=== PATIENT | female | born 1935 | race Caucasian/White ===

== ENCOUNTER 2016-06-19 08:29 | Emergency (ER) | payer OTHER ==
[~2016-06-19] VITALS: Ht 160 cm; Wt 90.7 kg
[2016-06-19 09:36] LABS: Basophils # (auto) 0.1 uL; Basophils % (auto) 0.8 % (0.0-2.0); Eosinophils # (auto) 0.1 uL; Hematocrit 41.4 % (36.0-46.0); Hemoglobin 13.6 g/dL (12.2-16.2); Lymphocytes % (auto) 29.4 % (10.0-50.0); Mean Corpuscular Hemoglobin 30.6 pg (28.0-32.0); Mean Corpuscular Volume 92.9 fL (80.0-100.0); Mean Platelet Volume 9.7 fL (7.4-10.4); Monocytes # (auto) 0.4 uL; Monocytes % (auto) 5.9 % (0.0-12.0); Neutrophils # (auto) 4.2 uL; Neutrophils % (auto) 61.9 % (37.0-80.0); Platelet Count (auto) 373 10^3/uL (140-450); White Blood Cell 6.8 10^3/uL (4.4-10.8)
[2016-06-19 09:53] VITALS: BP 137/74
[2016-06-19 10:05] LABS: Albumin 3.7 g/dL (3.4-5.0); Alkaline Phosphatase 70 U/L (45-117); Anion Gap 15 (5-15); Aspartate Aminotransferase 18 U/L (15-37); BUN/Creatinine Ratio 12.9; Bilirubin, Total 0.4 mg/dL (0.2-1.0); Blood Urea Nitrogen 15 mg/dL (7-18); Calcium 9.3 mg/dL (8.5-10.1); Carbon Dioxide 19 mmol/L (21-32); Chloride 110 mmol/L (98-107); GFR African American 58 mL/min; GFR Non-African American 48 mL/min; Glucose 113 mg/dL (74-106); Potassium 4.2 mmol/L (3.5-5.1); Sodium 144 mmol/L (136-145); Total Protein 7.9 g/dL (6.4-8.2)
== END 2016-06-19 11:46 | disposition home or self-care (01) ==
LOC: ER 08:29 → EDBD 08:29 → ER 11:46
DX: G45.9 Transient cerebral ischemic attack, unspecified (principal); F41.9 Anxiety disorder, unspecified; E11.9 Type 2 diabetes mellitus without complications; I10 Essential (primary) hypertension
CPT/HCPCS: 36415; 70450; 80053; 83735; 84484; 85025; 93005; 94761

== ENCOUNTER 2017-01-08 11:47 | Inpatient (IN) | payer OTHER ==
[~2017-01-08] VITALS: Ht 170.2 cm; Wt 81.4 kg
[2017-01-08] MEDS ORDERED: SODIUM CHLORIDE 0.9% 1,000 ML IV ONE (12:36)
[2017-01-08] MEDS ORDERED: LEVOFLOXACIN 500 MG/100 ML PREMIX BAG IV ONE (12:45)
[2017-01-08] MEDS ORDERED: DILTIAZEM HCL 25 MG/5 ML VIAL IV ONE (12:45)
[2017-01-08 13:08] LABS: Basophils # (auto) 0.1 uL; Basophils % (auto) 0.5 % (0.0-2.0); Eosinophils # (auto) 0 uL; Eosinophils % (auto) 0.1 % (0.0-7.0); Hematocrit 36.4 % (36.0-46.0); Hemoglobin 12.1 g/dL (12.2-16.2); Lymphocytes # (auto) 1.9 uL; Lymphocytes % (auto) 15.7 % (10.0-50.0); Mean Corpuscular Hemoglobin 31.1 pg (28.0-32.0); Mean Corpuscular Hgb Conc. 33.4 g/dL (32.0-36.0); Mean Corpuscular Volume 93.2 fL (80.0-100.0); Mean Platelet Volume 9.4 fL (6.9-10.8); Monocytes # (auto) 0.9 uL; Monocytes % (auto) 7.6 % (0.0-12.0); Neutrophils # (auto) 9.3 uL; Neutrophils % (auto) 76.1 % (37.0-80.0); Platelet Count (auto) 262 10^3/uL (140-450); Red Cell Distribution Width 14.7 % (11.8-14.3); White Blood Cell 12.2 10^3/uL (4.4-10.8)
[2017-01-08 13:20] LABS: INR 2.72 (0.9-1.15); Partial Thromboplastin Time 46.4 sec (22.64-33.71); Prothrombin Time 29.9 sec (9.37-12.3)
[2017-01-08] MEDS ORDERED: NITROGLYCERIN 0.4 MG SL TAB SL PRN (14:15)
[2017-01-08] MEDS ORDERED: HYDROcodone-ACET 5/325MG TAB PO PRN (14:15)
[2017-01-08] MEDS ORDERED: TEMAZEPAM 15 MG CAP PO PRN (14:15)
[2017-01-08] MEDS ORDERED: PIPERACILLIN-TAZOB 3.375GM 100 ML IV ONE (14:15)
[2017-01-08] MEDS ORDERED: MORPHINE SULF INJ 2 MG/ML SYRINGE 1ML IV PRN ×2 (14:15)
[2017-01-08] MEDS ORDERED: ACETAMINOPHEN 325 MG TAB PO PRN (14:15)
[2017-01-08] MEDS ORDERED: DEXTROSE (50%) 50ML SYRG IV PRN (14:15)
[2017-01-08] MEDS ORDERED: DOCUSATE SOD 100 MG CAP PO PRN (14:15)
[2017-01-08] MEDS ORDERED: VANCOMYCIN PER PHARMACY 0 MG IV SCH (14:15)
[2017-01-08] MEDS ORDERED: ONDANSETRON HCL 4 MG/2 ML VIAL IV PRN (14:15)
[2017-01-08 14:28] LABS: Albumin 3.3 g/dL (3.4-5.0); Bilirubin, Total 0.9 mg/dL (0.2-1.0); Calcium 8.5 mg/dL (8.5-10.1); Potassium 3.8 mmol/L (3.5-5.1); Total Protein 7.9 g/dL (6.4-8.2)
[2017-01-08 14:29] LABS: BUN/Creatinine Ratio 12.6
[2017-01-08 15:24] LABS: Urine Bilirubin Negative (Negative); Urine Blood Negative /uL (Negative); Urine Color Yellow (Yellow); Urine Glucose Normal (Normal); Urine Hyaline Cast FEW /lpf (0 - 2); Urine Ketone Negative (Negative); Urine Mucus FEW (None Seen); Urine Nitrite Negative (Negative); Urine RBC <1 /hpf (0 - 4); Urine Squamous Epithelial Cell FEW /hpf (<5); Urine Urobilinogen Normal (Negative); Urine pH 5.5 (5.0-8.0)
[2017-01-08] MEDS: DILTIAZEM 125mg/125ml BAG KIT 125 ML IV SCH (15:29)
[2017-01-08] MEDS: VANCOMYCIN 1GM/250ML D5W 250 ML IV SCH (16:10)
[2017-01-08] MEDS ORDERED: CLOPIDOGREL BISULFATE 75 MG TAB PO ONE (16:30)
[2017-01-08] MEDS: ACCU-CHEK COMFORT CURVE STRIP VI SCH ×2 (16:45→21:46)
[2017-01-08 16:53] LABS: Temperature: 21.9 C (20.0-25.0)
[2017-01-08] MEDS: InsuLIN REG 1unit/0.01ml Soln (100units/ml) SC SCH ×2 (16:53→21:45)
[2017-01-08] MEDS ORDERED: ASPirin 81 mg TAB PO ONE (17:00)
[2017-01-08] MEDS: Boost Glucose Control 8 Ounces PO SCH (18:02)
[2017-01-08] MEDS ORDERED: WARF3TAB22 PO (19:30)
[2017-01-08] MEDS ORDERED: WARF2TAB49 PO (19:30)
[2017-01-08] MEDS ORDERED: METO25TA5 PO (19:30)
[2017-01-08] MEDS ORDERED: METF-370 PO (19:30)
[2017-01-08] MEDS: PIPERACILLIN-TAZOB 3.375GM 100 ML IV SCH (20:17)
[2017-01-08] MEDS: SODIUM CHLOR 0.9% PF (SALINE LOCK) 10ML VIAL IV SCH (21:44)
[2017-01-08] MEDS: METOPROLOL TARTRATE 25 MG TAB PO SCH (21:45)
[2017-01-08] MEDS: FAMOTIDINE 20 MG TAB PO SCH (21:45)
[2017-01-08] MEDS: ASCORBIC ACID 500 MG TAB PO SCH (21:45)
[2017-01-09] MEDS: PIPERACILLIN-TAZOB 3.375GM 100 ML IV SCH ×3 (01:58→14:52)
[2017-01-09] MEDS: SODIUM CHLOR 0.9% PF (SALINE LOCK) 10ML VIAL IV SCH ×2 (06:07→14:15)
[2017-01-09] MEDS: InsuLIN REG 1unit/0.01ml Soln (100units/ml) SC SCH ×3 (06:39→17:57)
[2017-01-09] MEDS: ACCU-CHEK COMFORT CURVE STRIP VI SCH ×3 (06:39→17:58)
[2017-01-09 08:05] LABS: Basophils # (auto) 0.1 uL; Basophils % (auto) 0.8 % (0.0-2.0); Eosinophils # (auto) 0.1 uL; Eosinophils % (auto) 1.9 % (0.0-7.0); Hematocrit 34.2 % (36.0-46.0); Hemoglobin 11.3 g/dL (12.2-16.2); Lymphocytes % (auto) 26.3 % (10.0-50.0); Mean Corpuscular Hemoglobin 31.2 pg (28.0-32.0); Mean Corpuscular Hgb Conc. 33.1 g/dL (32.0-36.0); Mean Corpuscular Volume 94.2 fL (80.0-100.0); Mean Platelet Volume 9.9 fL (6.9-10.8); Monocytes # (auto) 0.9 uL; Monocytes % (auto) 11.4 % (0.0-12.0); Neutrophils # (auto) 4.5 uL; Neutrophils % (auto) 59.6 % (37.0-80.0); Platelet Count (auto) 211 10^3/uL (140-450); Red Cell Distribution Width 15.2 % (11.8-14.3); White Blood Cell 7.5 10^3/uL (4.4-10.8)
[2017-01-09 08:17] LABS: INR 3.16 (0.9-1.15); Partial Thromboplastin Time 47.1 sec (22.64-33.71); Prothrombin Time 34.9 sec (9.37-12.3)
[2017-01-09 08:33] LABS: Albumin 2.7 g/dL (3.4-5.0); BUN/Creatinine Ratio 15.5; Bilirubin, Total 0.8 mg/dL (0.2-1.0); Potassium 3.7 mmol/L (3.5-5.1); Total Protein 6.7 g/dL (6.4-8.2)
[2017-01-09] MEDS: Boost Glucose Control 8 Ounces PO SCH ×3 (08:47→17:58)
[2017-01-09] MEDS ORDERED: MULTIPLE VITAMIN TAB PO SCH (10:00)
[2017-01-09] MEDS ORDERED: ASPirin 81 mg TAB PO SCH (10:00)
[2017-01-09] MEDS ORDERED: ZINC SULFATE 220 MG CAP PO SCH (10:00)
[2017-01-09] MEDS: FAMOTIDINE 20 MG TAB PO SCH (10:24)
[2017-01-09] MEDS: METOPROLOL TARTRATE 25 MG TAB PO SCH (10:24)
[2017-01-09] MEDS: ASCORBIC ACID 500 MG TAB PO SCH (10:24)
[2017-01-09] MEDS: VANCOMYCIN 1GM/250ML D5W 250 ML IV SCH (10:35)
[2017-01-09 13:00] VITALS: BP 128/66
[2017-01-09 13:20] VITALS: BP 128/66
[2017-01-09] MEDS: DILTIAZEM 125mg/125ml BAG KIT 125 ML IV SCH (14:15)
[2017-01-09 17:00] VITALS: BP 134/64
[2017-01-09 18:39] VITALS: BP 128/66
== END 2017-01-09 20:20 | disposition short-term general hospital (02) | DRG 871 ==
LOC: ER 11:47 → EDBD 11:47 → TELE 11:48 → TELE-CENTR 01-09 12:16
PROVIDERS: ADMIT Internal Medicine; ATTEND Internal Medicine
DX: A41.9 Sepsis, unspecified organism (principal); G92 Toxic encephalopathy; I21.4 Non-ST elevation (NSTEMI) myocardial infarction; E11.21 Type 2 diabetes mellitus with diabetic nephropathy; D68.69 Other thrombophilia; E11.22 Type 2 diabetes mellitus with diabetic chronic kidney disease; I11.9 Hypertensive heart disease without heart failure; N18.3 Chronic kidney disease, stage 3 (moderate); I48.92 Unspecified atrial flutter; N39.0 Urinary tract infection, site not specified; I48.2 Chronic atrial fibrillation; B99.8 Other infectious disease; D63.8 Anemia in other chronic diseases classified elsewhere; T45.515A Adverse effect of anticoagulants, initial encounter; Z86.73 Personal history of transient ischemic attack (TIA), and cerebral infarction without residual deficits; Z83.3 Family history of diabetes mellitus
CPT/HCPCS: 36415; 51702; 70450; 71010; 80053; 81001; 82962; 83036; 83605; 83735; 83880; 84443; 84484; 85025; 85610; 85730; 87040; 93005; 93306; 93886; 96361; 96374; 96375; 99291; J1815; J1956; J2543

== ENCOUNTER 2017-01-14 06:45 | Emergency (ER) | payer OTHER ==
[~2017-01-14] VITALS: Ht 157.5 cm; Wt 81.6 kg
[~2017-01-14 06:45] MED LIST: METF-370 PO; METO25TA5 PO; WARF2TAB49 PO; WARF3TAB22 PO
[2017-01-14] MEDS ORDERED: KETOROLAC TROMETH 30 MG/ML 1ML VIAL IV ONE (07:15)
[2017-01-14 07:57] LABS: Basophils # (auto) 0 uL; Basophils % (auto) 0.5 % (0.0-2.0); Eosinophils # (auto) 0.3 uL; Eosinophils % (auto) 3.4 % (0.0-7.0); Hematocrit 41.2 % (36.0-46.0); Hemoglobin 12.7 g/dL (12.2-16.2); Lymphocytes # (auto) 1.8 uL; Lymphocytes % (auto) 21.1 % (10.0-50.0); Mean Corpuscular Hemoglobin 31.4 pg (28.0-32.0); Mean Corpuscular Hgb Conc. 30.9 g/dL (32.0-36.0); Mean Corpuscular Volume 101.7 fL (80.0-100.0); Mean Platelet Volume 8.8 fL (6.9-10.8); Monocytes # (auto) 0.9 uL; Monocytes % (auto) 11.2 % (0.0-12.0); Neutrophils # (auto) 5.4 uL; Neutrophils % (auto) 63.8 % (37.0-80.0); Nucleated Red Blood Cells % 0.1 %; Platelet Count (auto) 339 10^3/uL (140-450); Red Cell Distribution Width 16.3 % (11.8-14.3); White Blood Cell 8.4 10^3/uL (4.4-10.8)
[2017-01-14 08:44] LABS: Albumin 3.1 g/dL (3.4-5.0); BUN/Creatinine Ratio 10.4; Bilirubin, Total 0.4 mg/dL (0.2-1.0); Calcium 8.7 mg/dL (8.5-10.1); Total Protein 7.6 g/dL (6.4-8.2)
[2017-01-14] MEDS ORDERED: cefTRIAXone 1GM/50ML D5W 50 ML IV ONE (10:45)
[2017-01-14 10:54] LABS: Urine Bilirubin Negative (Negative); Urine Blood Negative /uL (Negative); Urine Color Yellow (Yellow); Urine Glucose Normal (Normal); Urine Ketone Negative (Negative); Urine Mucus FEW (None Seen); Urine Nitrite Negative (Negative); Urine RBC <1 /hpf (0 - 4); Urine Squamous Epithelial Cell FEW /hpf (<5); Urine Urobilinogen Normal (Negative); Urine pH 5.5 (5.0-8.0)
[2017-01-14 11:37] LABS: INR 1.1 (0.9-1.15); Partial Thromboplastin Time 28.9 sec (22.64-33.71)
[2017-01-14 15:20] VITALS: BP 141/78
== END 2017-01-14 15:27 | disposition home or self-care (01) ==
LOC: ER 06:45 → EDBD 06:45 → ER 15:27
DX: N39.0 Urinary tract infection, site not specified (principal); K80.20 Calculus of gallbladder without cholecystitis without obstruction; E11.9 Type 2 diabetes mellitus without complications; I10 Essential (primary) hypertension; Z86.73 Personal history of transient ischemic attack (TIA), and cerebral infarction without residual deficits
CPT/HCPCS: 36415; 71010; 74176; 76705; 80053; 81001; 83690; 85025; 85610; 85730; 96365; 96375; 99285; J0696; J1885

== ENCOUNTER 2017-02-24 17:48 | Emergency (ER) | payer OTHER ==
[~2017-02-24] VITALS: Ht 154.9 cm; Wt 86.2 kg
[2017-02-24] MEDS ORDERED: ENOXAPARIN SOD 100 MG/1 ML SYRINGE SC ONE (18:30)
[2017-02-24 18:31] LABS: Basophils # (auto) 0.1 uL; Basophils % (auto) 1.1 % (0.0-2.0); Eosinophils # (auto) 0.2 uL; Eosinophils % (auto) 2.9 % (0.0-7.0); Hematocrit 39.1 % (36.0-46.0); Hemoglobin 12.9 g/dL (12.2-16.2); Lymphocytes # (auto) 2.3 uL; Lymphocytes % (auto) 28.7 % (10.0-50.0); Mean Corpuscular Hemoglobin 30.9 pg (28.0-32.0); Mean Corpuscular Hgb Conc. 32.9 g/dL (32.0-36.0); Mean Corpuscular Volume 94.2 fL (80.0-100.0); Mean Platelet Volume 9.5 fL (6.9-10.8); Monocytes # (auto) 0.6 uL; Monocytes % (auto) 7.5 % (0.0-12.0); Neutrophils # (auto) 4.7 uL; Neutrophils % (auto) 59.8 % (37.0-80.0); Nucleated Red Blood Cells % 0.1 %; Platelet Count (auto) 272 10^3/uL (140-450); White Blood Cell 7.8 10^3/uL (4.4-10.8)
[2017-02-24 18:56] LABS: Albumin 3.4 g/dL (3.4-5.0); BUN/Creatinine Ratio 13.3; Calcium 9.2 mg/dL (8.5-10.1)
[2017-02-24 19:00] LABS: Bilirubin, Total 0.4 mg/dL (0.2-1.0)
[2017-02-24] MEDS ORDERED: ONDANSETRON HCL 4 MG/2 ML VIAL IV ONE ×2 (19:00→21:30)
[2017-02-24] MEDS ORDERED: MORPHINE SULF INJ 2 MG/ML SYRINGE 1ML IV ONE (19:00)
[2017-02-24] MEDS ORDERED: ASPirin 81 mg TAB PO ONE (19:30)
[2017-02-24] MEDS ORDERED: HEPARIN DRIP/D5W 100UNITS/ML 250 ML IV SCH (20:42)
[2017-02-24] MEDS ORDERED: HEPARIN SODIUM (PORCINE) 5000 UNITS/ML 1ML VIAL IV ONE (20:45)
[2017-02-24 21:21] LABS: Basophils # (auto) 0.1 uL; Basophils % (auto) 0.8 % (0.0-2.0); Eosinophils # (auto) 0.1 uL; Eosinophils % (auto) 0.7 % (0.0-7.0); Hematocrit 39.2 % (36.0-46.0); Hemoglobin 12.8 g/dL (12.2-16.2); Lymphocytes # (auto) 1.6 uL; Lymphocytes % (auto) 15.4 % (10.0-50.0); Mean Corpuscular Hemoglobin 30.9 pg (28.0-32.0); Mean Corpuscular Hgb Conc. 32.8 g/dL (32.0-36.0); Mean Corpuscular Volume 94.3 fL (80.0-100.0); Mean Platelet Volume 9.4 fL (6.9-10.8); Monocytes # (auto) 0.5 uL; Monocytes % (auto) 4.7 % (0.0-12.0); Neutrophils # (auto) 8.1 uL; Neutrophils % (auto) 78.4 % (37.0-80.0); Platelet Count (auto) 276 10^3/uL (140-450); White Blood Cell 10.3 10^3/uL (4.4-10.8)
[2017-02-24 21:28] LABS: Prothrombin Time 10.9 sec (9.37-12.3)
[2017-02-24] MEDS ORDERED: HYDROmorphone HCL 2 MG/ML VL IV ONE (21:30)
[2017-02-24 22:10] VITALS: BP 163/70
== END 2017-02-24 21:16 | disposition home or self-care (01) ==
LOC: EDUNIT# 17:48 → EDBD 17:48 → ER 17:54
DX: I74.10 Embolism and thrombosis of unspecified parts of aorta (principal); I70.202 Unspecified atherosclerosis of native arteries of extremities, left leg; I70.291 Other atherosclerosis of native arteries of extremities, right leg; I25.10 Atherosclerotic heart disease of native coronary artery without angina pectoris; I48.91 Unspecified atrial fibrillation; E11.9 Type 2 diabetes mellitus without complications; I10 Essential (primary) hypertension; Z79.01 Long term (current) use of anticoagulants
CPT/HCPCS: 36415; 71010; 74176; 80053; 84484; 85025; 85610; 85730; 93005; 93926; 96365; 96372; 96375; 96376; 99285; J1170; J1644; J1650; J2270; J2405

== ENCOUNTER 2018-03-05 07:26 | Emergency (ER) | payer OTHER ==
[~2018-03-05] VITALS: Ht 157.5 cm; Wt 87.1 kg
[2018-03-05] MEDS ORDERED: SODIUM CHLORIDE 0.9% 500 ML IVB ONE (07:51)
[2018-03-05 08:28] LABS: Basophils # (auto) 0 uL; Basophils % (auto) 0.4 % (0.0-2.0); Eosinophils # (auto) 0 uL; Eosinophils % (auto) 0.3 % (0.0-7.0); Hematocrit 40.1 % (36.0-46.0); Hemoglobin 13.2 g/dL (12.2-16.2); Lymphocytes # (auto) 0.7 uL; Mean Corpuscular Hemoglobin 32.6 pg (28.0-32.0); Mean Corpuscular Volume 98.7 fL (80.0-100.0); Monocytes # (auto) 0.7 uL; Monocytes % (auto) 6.6 % (0.0-12.0); Neutrophils # (auto) 8.8 uL; Neutrophils % (auto) 85.7 % (37.0-80.0); Nucleated Red Blood Cells % 0.1 %; Platelet Count (auto) 286 10^3/uL (140-450); Red Blood Cells 4.06 10^6/uL (4.0-5.20); Red Cell Distribution Width 14.9 % (11.8-14.3); White Blood Cell 10.3 10^3/uL (4.4-10.8)
[2018-03-05 08:31] LABS: Urine Bacteria NONE SEEN /hpf (None Seen); Urine Blood Negative /uL (Negative); Urine Specific Gravity 1.014 (1.001-1.035); Urine WBC 1 /hpf (0 - 5)
[2018-03-05 08:40] LABS: INR 2.01 (0.9-1.15); Partial Thromboplastin Time 32.8 sec (23.78-33.04); Prothrombin Time 20.7 sec (9.27-12.13)
[2018-03-05 08:51] LABS: Alanine Aminotransferase 13 U/L (13-56); Albumin 3.4 g/dL (3.4-5.0); Anion Gap 12 (5-15); Aspartate Aminotransferase 17 U/L (15-37); BUN/Creatinine Ratio 13.4; Blood Urea Nitrogen 16 mg/dL (7-18); Calcium 8.4 mg/dL (8.5-10.1); Carbon Dioxide 22 mmol/L (21-32); Chloride 104 mmol/L (98-107); GFR African American 56 mL/min; GFR Non-African American 46 mL/min; Glucose 132 mg/dL (74-106); Magnesium 1.9 mg/dL (1.6-2.6); Sodium 138 mmol/L (136-145)
[2018-03-05 08:52] LABS: Lactic Acid w/Reflex 2.7 mmol/L (0.4-2.0)
[2018-03-05 08:55] LABS: Alkaline Phosphatase 64 U/L (45-117); Bilirubin, Total 0.6 mg/dL (0.2-1.0); Total Protein 7.9 g/dL (6.4-8.2)
[2018-03-05] MEDS ORDERED: IOHEXOL 350 MG/ML 100ML IJ ONE (10:23)
[2018-03-05 12:46] LABS: Lactic Acid w/Reflex 2.3 mmol/L (0.4-2.0)
[2018-03-05 16:36] VITALS: BP 160/60
== END 2018-03-05 17:08 | disposition short-term general hospital (02) ==
LOC: ER 07:26 → EDBD 07:26 → ER 17:08
DX: R41.82 Altered mental status, unspecified (principal); R74.0 Nonspecific elevation of levels of transaminase and lactic acid dehydrogenase [LDH]; E11.9 Type 2 diabetes mellitus without complications; I10 Essential (primary) hypertension; I48.91 Unspecified atrial fibrillation; Z86.73 Personal history of transient ischemic attack (TIA), and cerebral infarction without residual deficits
CPT/HCPCS: 36415; 51702; 70450; 71045; 71260; 74177; 80053; 81001; 83605; 83735; 84484; 85025; 85610; 85730; 87040; 93005; 94761; 96360; 96361; 99285; J7040; Q9967

== ENCOUNTER → 2019-11-27 | Emergency (ER) | payer OTHER ==
[~2019-11-27] VITALS: Ht 162.6 cm; Wt 81.6 kg
[~2019-11-27] MED LIST changes: +ASCO500T11 PO; +SODIUM CHLORIDE 0.9% 1,000 ML IV ONE; +cefTRIAXone 1GM/50ML D5W 50 ML IV ONE
[2019-11-27 11:48] LABS: Basophils # (auto) 0.1 10 ^3/uL (0-0.2); Basophils % (auto) 0.9 % (0.0-2.0); Eosinophils # (auto) 0.1 10 ^3/uL (0-0.8); Eosinophils % (auto) 1.5 % (0.0-7.0); Hematocrit 38.9 % (36.0-46.0); Hemoglobin 13.2 g/dL (12.2-16.2); Lymphocytes # (auto) 0.9 10 ^3/uL (0.4-5.4); Lymphocytes % (auto) 10.5 % (10.0-50.0); Mean Corpuscular Hemoglobin 32.6 pg (28.0-32.0); Mean Corpuscular Hgb Conc. 33.9 g/dL (32.0-36.0); Mean Corpuscular Volume 96.2 fL (80.0-100.0); Monocytes # (auto) 0.9 10 ^3/uL (0-1.3); Monocytes % (auto) 10.2 % (0.0-12.0); Neutrophils # (auto) 6.7 10 ^3/uL (1.6-8.6); Neutrophils % (auto) 76.9 % (37.0-80.0); Platelet Count (auto) 267 10^3/uL (140-450); Red Blood Cells 4.04 10^6/uL (4.0-5.20); Red Cell Distribution Width 14.9 % (11.8-14.3); White Blood Cell 8.7 10^3/uL (4.4-10.8)
[2019-11-27 12:00] LABS: Urine Bacteria MANY /hpf (None Seen); Urine Blood 3+ /uL (Negative); Urine Mucus FEW (None Seen); Urine Specific Gravity 1.018 (1.001-1.035); Urine WBC 1860 /hpf (0 - 5); Urine WBC Clumps PRESENT /hpf (None Seen)
[2019-11-27 12:04] LABS: INR 1.91 (0.9-1.15); Partial Thromboplastin Time 30.8 sec (23.0-31.2)
[2019-11-27 12:10] LABS: Albumin 3.4 g/dL (3.4-5.0); Anion Gap 6 (5-15); Blood Urea Nitrogen 18 mg/dL (7-18); Calcium 8.4 mg/dL (8.5-10.1); Carbon Dioxide 22 mmol/L (21-32); Chloride 106 mmol/L (98-107); Glucose 114 mg/dL (74-106); Potassium 3.8 mmol/L (3.5-5.1); Sodium 134 mmol/L (136-145)
[2019-11-27 12:16] LABS: Alanine Aminotransferase 13 U/L (13-56); Alkaline Phosphatase 56 U/L (45-117); Aspartate Aminotransferase 23 U/L (15-37); BUN/Creatinine Ratio 12.9; Bilirubin, Total 0.7 mg/dL (0.2-1.0); GFR African American 46 mL/min; GFR Non-African American 38 mL/min; Total Protein 7.6 g/dL (6.4-8.2)
[2019-11-27 19:10] VITALS: BP 146/94
== END | disposition home or self-care (01) ==
LOC: EDUNIT# 11:14 → EDBD 11:19 → ER 11:19
DX: G93.41 Metabolic encephalopathy (principal); I48.91 Unspecified atrial fibrillation; E11.9 Type 2 diabetes mellitus without complications; I10 Essential (primary) hypertension
CPT/HCPCS: 36415; 70450; 71045; 80053; 81001; 83605; 83880; 84484; 85025; 85610; 85730; 87040; 96361; 96365; 99285; J0696; J7030